=== PATIENT | female | born 1940 | race Two or more races ===

== ENCOUNTER 2022-12-16 08:13 | Day surgery (SDC) | payer MEDICARE, OTHER ==
[~2022-12-16] VITALS: Ht 157.5 cm; Wt 86.2 kg
[2022-12-16] MEDS ORDERED: fentaNYL citrate 0.05 MG/ML VIAL ONE (09:06)
== END 2022-12-16 10:25 | disposition home or self-care (01) ==
LOC: MOR 08:13 → MMU 08:15 → MOR 10:25
PROVIDERS: ATTEND Internal Medicine Gastroenterology
DX: Z12.11 Encounter for screening for malignant neoplasm of colon (principal); Z86.010 Personal history of colon polyps; I10 Essential (primary) hypertension; E78.5 Hyperlipidemia, unspecified; E66.9 Obesity, unspecified; J45.909 Unspecified asthma, uncomplicated; K21.9 Gastro-esophageal reflux disease without esophagitis; Z96.653 Presence of artificial knee joint, bilateral; Z98.890 Other specified postprocedural states; Z79.899 Other long term (current) drug therapy
CPT/HCPCS: 45378; J3010; J7030